=== PATIENT | female | born 1975 | race Caucasian/White ===

== ENCOUNTER 2017-05-23 16:57 | Inpatient (IN) | payer OTHER ==
--- NOTE | 2017-05-23 17:32 | Cat Scan Report ---
FINAL REPORT PROCEDURE: CT HEAD/BRAIN WO CON TECHNIQUE: Computerized tomography of the head was performed without contrast material. HISTORY: neuro deficits \T\lt; 6hrs or sx present upon awakening COMPARISON: No prior studies are available for comparison. FINDINGS: The visualized portions of the paranasal sinuses are clear. Mastoid air cells are clear. There is no calvarial fracture. There is no hydrocephalus. No acute intracranial hemorrhage or mass effect is seen. There are mild areas of hypodensity seen in the subcortical white matter in the frontal and parietal convexities. Appearance is nonspecific but could be from subacute to chronic small vessel ischemic changes or demyelinating process. Other causes of encephalopathy are not excluded. IMPRESSION: Nonspecific hypodensities are seen in the subcortical white matter in the frontal and parietal convexities. Findings could be due to small vessel ischemic changes but could be a demyelinating process. Other causes of encephalopathy are not excluded. Critical results were discussed with Dr Suarez at 5:26 p.m. Eastern time on May 23, 2017.
[2017-05-23 17:42] LABS: Basophils % (Auto) 0.6 % (0.0-1.8); Eosinophils % (Auto) 0.9 % (0.0-4.3); Hematocrit 44.7 % (30.3-42.9); Hemoglobin 14.1 gm/dl (10.1-14.3); Mean Corpuscular HGB Conc 32 % (30-34); Mean Corpuscular Volume 79 fl (79-97); Platelet Count 414 K/mm3 (140-440); Red Blood Count 5.64 M/mm3 (3.65-5.03); Red Cell Distribution Width 17.2 % (13.2-15.2)
[2017-05-23 17:43] LABS: Mean Corpuscular Hemoglobin 25 pg (28-32)
[2017-05-23 17:49] LABS: Urine Drugs of Abuse Note Disclamer
[2017-05-23 17:53] LABS: INR 1.09 (0.87-1.13)
[2017-05-23 17:54] LABS: Partial Thromboplastin Time 34.5 Sec. (24.2-36.6)
[2017-05-23 17:58] LABS: Anion Gap 22 mmol/L; Blood Urea Nitrogen 41 mg/dL (7-17); Calcium 9.9 mg/dL (8.4-10.2); Carbon Dioxide 24 mmol/L (22-30); Chloride 94.4 mmol/L (98-107); Glucose 94 mg/dL (65-100); Potassium 4.8 mmol/L (3.6-5.0); Sodium 136 mmol/L (137-145)
[2017-05-23 18:01] LABS: Bacteria,Urine 1+ /HPF (Negative); Bilirubin,Urine NEG (Negative); Blood,Urine NEG (Negative); Ketones,Urine NEG (Negative); Leukocyte Esterase,Urine NEG (Negative); Nitrite,Urine NEG (Negative); Urobilinogen,Urine < 2.0 mg/dL (<2.0)
--- NOTE | 2017-05-23 19:32 | Emergency Department Report ---
ED Neuro Deficit HPI - General Chief Complaint: Headache Stated Complaint: POSSIBLE CVA Time Seen by Provider: 05/23/17 17:16 Source: EMS Mode of arrival: Stretcher Limitations: No Limitations - History of Present Illness Initial Comments: Presented to this facility as a stroke protocol. I am told by paramedics that the patient laid down on the floor in bathroom at work. She works at [employer]. She told her coworkers he had a diffuse and somewhat frontal headache. Later she told medics that she was having weakness in her right hand. Medics thought that she might have upper extremity drift. Therefore she was transported as a code stroke. On arrival to this facility patient was not found to have drift. She appeared to have poor volition on right hand grasp but was able to do it with reasonable for us. She states that in January she was transferred from [facility] to [place] for evaluation of an intracranial hemorrhage. She states she had extensive testing and no source was found. She states that she was discharged with a "21 day supply of medicine for seizure". -: Gradual Location: other (right hand) History of same: Yes (see HPI) Place: work Severity: moderate Quality: weak Improves With: none Worsens With: none On Anticoagulants: No Context: gradual onset Associated Symptoms: denies other symptoms Treatments Prior to Arrival: none - Related Data Home Medications: Home Medications Medication Instructions Recorded Confirmed Last Taken Docusate Sodium [Colace] 100 mg PO BID 05/23/17 05/23/17 05/22/17 Lisinopril/Hydrochlorothiazide 1 tab PO QDAY 05/23/17 05/23/17 05/23/17 [Zestoretic 20-12.5 mg] Pravastatin Sodium [Pravastatin] 40 mg PO QHS 05/23/17 05/23/17 05/22/17 amLODIPine [Norvasc] 5 mg PO DAILY 05/23/17 05/23/17 05/23/17 Allergies/Adverse Reactions: Allergies Allergy/AdvReac Type Severity Reaction Status Date / Time No Known Allergies Allergy Unverified 05/23/17 17:01 ED Review of Systems ROS: Stated complaint: POSSIBLE CVA Other details as noted in HPI Constitutional: denies: chills, fever Eyes: denies: eye pain, eye discharge, vision change ENT: denies: ear pain, throat pain Respiratory: denies: cough, shortness of breath, wheezing Cardiovascular: denies: chest pain, palpitations Endocrine: no symptoms reported Gastrointestinal: denies: abdominal pain, nausea, diarrhea Genitourinary: denies: urgency, dysuria, discharge Musculoskeletal: denies: back pain, joint swelling, arthralgia Skin: denies: rash, lesions 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 denies: headache, paresthesias Psychiatric: denies: anxiety, depression Hematological/Lymphatic: denies: easy bleeding, easy bruising ED Past Medical Hx - Past Medical History Previous Medical History?: Yes Additional medical history: "brain bleed" april 2017 - Surgical History Past Surgical History?: Yes Hx Cholecystectomy: Yes Additional Surgical History: finger surgery - Social History Smoking Status: Never Smoker Substance Use Type: Prescribed - Medications Home Medications: Home Medications Medication Instructions Recorded Confirmed Last Taken Type Docusate Sodium [Colace] 100 mg PO BID 05/23/17 05/23/17 05/22/17 History Lisinopril/Hydrochlorothiazide 1 tab PO QDAY 05/23/17 05/23/17 05/23/17 History [Zestoretic 20-12.5 mg] Pravastatin Sodium [Pravastatin] 40 mg PO QHS 05/23/17 05/23/17 05/22/17 History amLODIPine [Norvasc] 5 mg PO DAILY 05/23/17 05/23/17 05/23/17 History ED Neuro Physical Exam - General Limitations: No Limitations General appearance: alert, in no apparent distress Suspected Stroke: No - Head Head exam: Present: atraumatic, normocephalic - Eye Eye exam: Present: normal appearance, PERRL, EOMI. Absent: scleral icterus - ENT ENT exam: Present: mucous membranes moist - Neck Neck exam: Present: normal inspection - Respiratory Respiratory exam: Present: normal lung sounds bilaterally. Absent: respiratory distress - Cardiovascular Cardiovascular Exam: Present: regular rate, normal rhythm. Absent: systolic murmur, diastolic murmur, rubs, gallop - GI/Abdominal GI/Abdominal exam: Present: soft, normal bowel sounds. Absent: distended, tenderness, guarding, rebound, rigid - Extremities Exam Extremities exam: Present: normal inspection - Back Exam Back exam: Present: normal inspection - Neurological Exam Neurological exam: Present: alert, oriented X3, CN II-XII intact. Absent: motor sensory deficit (the patient's NIH stroke score is 0. She seemed to have a stronger hand grasp on the left than on the right. However she had no drift. 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 Level of Consciousness: alert 1b. LOC Questions: answers correctly 1c. LOC Commands: performs tasks correctly 2. Best Gaze: normal 3. Visual: no visual loss 4. Facial Palsy: normal symmetrical movement 5b. Motor Arm Right: no drift 5a. Motor Arm Left: no drift 6a. Motor Leg Left: no drift 6b. Motor Leg Right: no drift 7. Limb Ataxia: absent 8. Sensory: normal 9. Best Language: no aphasia 10. Dysarthria: normal 11. Extinction/Inattention: no abnormality Total Score: 0 Stroke Severity: No Stroke Symptoms - Psychiatric Psychiatric exam: Present: normal affect, normal mood - Skin Skin exam: Present: warm, dry, intact, normal color. Absent: rash ED Course Vital Signs 05/23/17 05/23/17 17:51 17:56 Temperature 98 F Pulse Rate 91 H Respiratory 19 14 Rate Blood Pressure 143/82 O2 Sat by Pulse 100 Oximetry - Reevaluation(s) Reevaluation #1: The patient is not a candidate for TPA. She presented with a headache as her primary symptom. She has had a recent intracranial bleed by history. I NIH stroke score is 0. 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 Etiology of this is uncertain. She did appear to be quite anxious on preliminary neurological evaluation. I spoke with the radiologist concerning the patient's CT result. She has nonspecific hypodensities seen in the subcortical white matter of the frontal and parietal convexities. This could be due to a demyelinating disease. Multiple sclerosis is in the diagnosis. I asked the radiologist if he thought an MRI with contrast should be added to the usual stroke protocol. He stated that he thought that was a good idea. I have communicated this to who is admitted the patient further care and evaluation. 05/23/17 19:33 - Lab Data Result diagrams: 05/23/17 17:25 05/23/17 17:25 Lab Results 05/23/17 05/23/17 05/23/17 Range/Units 17:03 17:25 17:25 WBC 11.0 (4.5-11.0) K/mm3 RBC 5.64 H (3.65-5.03) M/mm3 Hgb 14.1 (10.1-14.3) gm/dl Hct 44.7 H (30.3-42.9) % MCV 79 (79-97) fl MCH 25 L (28-32) pg MCHC 32 (30-34) % RDW 17.2 H (13.2-15.2) % Plt Count 414 (140-440) K/mm3 Lymph % (Auto) 16.8 (13.4-35.0) % [place] % (Auto) 5.9 (0.0-7.3) % Eos % (Auto) 0.9 (0.0-4.3) % Baso % (Auto) 0.6 (0.0-1.8) % Lymph # 1.8 (1.2-5.4) K/mm3 [place] # 0.7 (0.0-0.8) K/mm3 Eos # 0.1 (0.0-0.4) K/mm3 Baso # 0.1 (0.0-0.1) K/mm3 Seg Neutrophils % 75.8 H (40.0-70.0) % Seg Neutrophils # 8.3 H (1.8-7.7) K/mm3 PT 14.0 (12.2-14.9) Sec. INR 1.09 (0.87-1.13) APTT 34.5 (24.2-36.6) Sec. Thrombin Time (15.1-19.6) Sec. Sodium (137-145) mmol/L Potassium (3.6-5.0) mmol/L Chloride (98-107) mmol/L Carbon Dioxide (22-30) mmol/L Anion Gap mmol/L BUN (7-17) mg/dL Creatinine (0.7-1.2) mg/dL Estimated GFR ml/min BUN/Creatinine Ratio % Glucose (65-100) mg/dL POC Glucose 113 H (70-105) Calcium (8.4-10.2) mg/dL Troponin T (0.00-0.029) ng/mL Urine Color (Yellow) Urine Turbidity (Clear) Urine pH (5.0-7.0) Ur Specific [place] (1.003-1.030) Urine Protein (Negative) mg/dL Urine Glucose (UA) (Negative) mg/dL Urine Ketones (Negative) mg/dL Urine Blood (Negative) Urine Nitrite (Negative) Urine Bilirubin (Negative) Urine Urobilinogen (<2.0) mg/dL Ur Leukocyte Esterase (Negative) Urine WBC (Auto) (0.0-6.0) /HPF Urine RBC (Auto) (0.0-6.0) /HPF U Epithel Cells (Auto) (0-13.0) /HPF Urine Bacteria (Auto) (Negative) /HPF Urine Opiates Screen Urine Methadone Screen Ur Barbiturates Screen Ur Phencyclidine Scrn Ur Amphetamines Screen U Benzodiazepines Scrn Urine Cocaine Screen U Marijuana (THC) Screen Drugs of Abuse Note 05/23/17 05/23/17 05/23/17 Range/Units 17:25 17:25 17:38 WBC (4.5-11.0) K/mm3 RBC (3.65-5.03) M/mm3 Hgb (10.1-14.3) gm/dl Hct (30.3-42.9) % MCV (79-97) fl MCH (28-32) pg MCHC (30-34) % RDW (13.2-15.2) % Plt Count (140-440) K/mm3 Lymph % (Auto) (13.4-35.0) % [place] % (Auto) (0.0-7.3) % Eos % (Auto) (0.0-4.3) % Baso % (Auto) (0.0-1.8) % Lymph # (1.2-5.4) K/mm3 [place] # (0.0-0.8) K/mm3 Eos # (0.0-0.4) K/mm3 Baso # (0.0-0.1) K/mm3 Seg Neutrophils % (40.0-70.0) % Seg Neutrophils # (1.8-7.7) K/mm3 PT (12.2-14.9) Sec. INR (0.87-1.13) APTT (24.2-36.6) Sec. Thrombin Time 14.8 L (15.1-19.6) Sec. Sodium 136 L (137-145) mmol/L Potassium 4.8 (3.6-5.0) mmol/L Chloride 94.4 L (98-107) mmol/L Carbon Dioxide 24 (22-30) mmol/L Anion Gap 22 mmol/L BUN 41 H (7-17) mg/dL Creatinine 2.0 H (0.7-1.2) mg/dL Estimated GFR 27 ml/min BUN/Creatinine Ratio 20.50 % Glucose 94 (65-100) mg/dL POC Glucose (70-105) Calcium 9.9 (8.4-10.2) mg/dL Troponin T < 0.010 (0.00-0.029) ng/mL Urine Color Yellow (Yellow) Urine Turbidity Clear (Clear) Urine pH 5.0 (5.0-7.0) Ur Specific [place] 1.016 (1.003-1.030) Urine Protein 30 mg/dl (Negative) mg/dL Urine Glucose (UA) Neg (Negative) mg/dL Urine Ketones Neg (Negative) mg/dL Urine Blood Neg (Negative) Urine Nitrite Neg (Negative) Urine Bilirubin Neg (Negative) Urine Urobilinogen < 2.0 (<2.0) mg/dL Ur Leukocyte Esterase Neg (Negative) Urine WBC (Auto) 1.0 (0.0-6.0) /HPF Urine RBC (Auto) 1.0 (0.0-6.0) /HPF U Epithel Cells (Auto) 1.0 (0-13.0) /HPF Urine Bacteria (Auto) 1+ (Negative) /HPF Urine Opiates Screen Urine Methadone Screen Ur Barbiturates Screen Ur Phencyclidine Scrn Ur Amphetamines Screen U Benzodiazepines Scrn Urine Cocaine Screen U Marijuana (THC) Screen Drugs of Abuse Note 05/23/17 Range/Units 17:38 WBC (4.5-11.0) K/mm3 RBC (3.65-5.03) M/mm3 Hgb (10.1-14.3) gm/dl Hct (30.3-42.9) % MCV (79-97) fl MCH (28-32) pg MCHC (30-34) % RDW (13.2-15.2) % Plt Count (140-440) K/mm3 Lymph % (Auto) (13.4-35.0) % [place] % (Auto) (0.0-7.3) % Eos % (Auto) (0.0-4.3) % Baso % (Auto) (0.0-1.8) % Lymph # (1.2-5.4) K/mm3 [place] # (0.0-0.8) K/mm3 Eos # (0.0-0.4) K/mm3 Baso # (0.0-0.1) K/mm3 Seg Neutrophils % (40.0-70.0) % Seg Neutrophils # (1.8-7.7) K/mm3 PT (12.2-14.9) Sec. INR (0.87-1.13) APTT (24.2-36.6) Sec. Thrombin Time (15.1-19.6) Sec. Sodium (137-145) mmol/L Potassium (3.6-5.0) mmol/L Chloride (98-107) mmol/L Carbon Dioxide (22-30) mmol/L Anion Gap mmol/L BUN (7-17) mg/dL Creatinine (0.7-1.2) mg/dL Estimated GFR ml/min BUN/Creatinine Ratio % Glucose (65-100) mg/dL POC Glucose (70-105) Calcium (8.4-10.2) mg/dL Troponin T (0.00-0.029) ng/mL Urine Color (Yellow) Urine Turbidity (Clear) Urine pH (5.0-7.0) Ur Specific [place] (1.003-1.030) Urine Protein (Negative) mg/dL Urine Glucose (UA) (Negative) mg/dL Urine Ketones (Negative) mg/dL Urine Blood (Negative) Urine Nitrite (Negative) Urine Bilirubin (Negative) Urine Urobilinogen (<2.0) mg/dL Ur Leukocyte Esterase (Negative) Urine WBC (Auto) (0.0-6.0) /HPF Urine RBC (Auto) (0.0-6.0) /HPF U Epithel Cells (Auto) (0-13.0) /HPF Urine Bacteria (Auto) (Negative) /HPF Urine Opiates Screen Presumptive negative Urine Methadone Screen Presumptive negative Ur Barbiturates Screen Presumptive negative Ur Phencyclidine Scrn Presumptive negative Ur Amphetamines Screen Presumptive negative U Benzodiazepines Scrn Presumptive negative Urine Cocaine Screen Presumptive negative U Marijuana (THC) Screen Presumptive negative Drugs of Abuse Note Disclamer - EKG Data -: EKG Interpreted by [place] EKG shows normal: sinus rhythm, axis, intervals, QRS complexes, ST-T waves Rate: normal Interpretation: no acute changes - Radiology Data Radiology results: report reviewed (see above report) Critical care attestation.: If time is entered above; I have spent that time in minutes in the direct care of this critically ill patient, excluding procedure time. ED Disposition Clinical Impression: Abnormal CT of brain Cephalalgia Qualifiers: Headache type: unspecified Headache chronicity pattern: acute headache Intractability: not intractable Qualified Code(s): R51 - Headache Disposition: DC-01 TO HOME OR SELFCARE Is pt being admited?: Yes Does the pt Need Aspirin: Yes Condition: Stable Time of Disposition: 19:36
[2017-05-23] MEDS ORDERED: BABY ASPIRIN PO ONE (19:36)
--- NOTE | 2017-05-23 20:10 | History and Physical Report ---
History of Present Illness Date of examination: 05/23/17 Date of admission: 05/23/17 Chief complaint: Rt side weakness History of present illness: History of Present Illness Very [poor historian Admits to passing out in [facility]. Presented to this facility as a stroke protocol. I am told by paramedics that the patient laid down on the floor in bathroom at work. She works at [employer]. She told her coworkers he had a diffuse and somewhat frontal headache. Later she told medics that she was having weakness in her right hand. Medics thought that she might have upper extremity drift. Therefore she was transported as a code stroke. On arrival to this facility patient was not found to have drift. She appeared to have poor volition on right hand grasp but was able to do it with reasonable for us. She states that in January she was transferred from [facility] to [place] for evaluation of an intracranial hemorrhage. She states she had extensive testing and no source was found. She states that she was discharged with a "21 day supply of medicine for seizure". - Related Data Home Medications: Home Medications Medication Instructions Recorded Confirmed Last Taken Docusate Sodium [Colace] 100 mg PO BID 05/23/17 05/23/17 05/22/17 Lisinopril/Hydrochlorothiazide 1 tab PO QDAY 05/23/17 05/23/17 05/23/17 [Zestoretic 20-12.5 mg] Pravastatin Sodium [Pravastatin] 40 mg PO QHS 05/23/17 05/23/17 05/22/17 amLODIPine [Norvasc] 5 mg PO DAILY 05/23/17 05/23/17 05/23/17 Allergies/Adverse Reactions: Allergies Allergy/AdvReac Type Severity Reaction Status Date / Time No Known Allergies Allergy Unverified 05/23/17 17:01 Past Medical Hx - Past Medical History Previous Medical History?: Yes Additional medical history: "brain bleed" april 2017 - Surgical History Past Surgical History?: Yes Hx Cholecystectomy: Yes Additional Surgical History: finger surgery - Social History Smoking Status: Never Smoker Substance Use Type: Prescribed - Medications Home Medications: Home Medications Medication Instructions Recorded Confirmed Last Taken Type Docusate Sodium [Colace] 100 mg PO BID 05/23/17 05/23/17 05/22/17 History Lisinopril/Hydrochlorothiazide 1 tab PO QDAY 05/23/17 05/23/17 05/23/17 History [Zestoretic 20-12.5 mg] Pravastatin Sodium [Pravastatin] 40 mg PO QHS 05/23/17 05/23/17 05/22/17 History amLODIPine [Norvasc] 5 mg PO DAILY 05/23/17 05/23/17 05/23/17 History Review of Systems ROS: Stated complaint: POSSIBLE CVA Other details as noted in HPI Constitutional: denies: chills, fever Eyes: denies: eye pain, eye discharge, vision change ENT: denies: ear pain, throat pain Respiratory: denies: cough, shortness of breath, wheezing Cardiovascular: denies: chest pain, palpitations Endocrine: no symptoms reported Gastrointestinal: denies: abdominal pain, nausea, diarrhea Genitourinary: denies: urgency, dysuria, discharge Musculoskeletal: denies: back pain, joint swelling, arthralgia Skin: denies: rash, lesions 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 denies: headache, paresthesias Psychiatric: denies: anxiety, depression Hematological/Lymphatic: denies: easy bleeding, easy bruising Medications and Allergies Allergies Allergy/AdvReac Type Severity Reaction Status Date / Time No Known Allergies Allergy Unverified 05/23/17 17:01 Home Medications Medication Instructions Recorded Confirmed Last Taken Type Docusate Sodium [Colace] 100 mg PO BID 05/23/17 05/23/17 05/22/17 History Lisinopril/Hydrochlorothiazide 1 tab PO QDAY 05/23/17 05/23/17 05/23/17 History [Zestoretic 20-12.5 mg] Pravastatin Sodium [Pravastatin] 40 mg PO QHS 05/23/17 05/23/17 05/22/17 History amLODIPine [Norvasc] 5 mg PO DAILY 05/23/17 05/23/17 05/23/17 History Exam - Constitutional Vitals: Temp Pulse Resp BP Pulse Ox 98 F 91 H 14 143/82 100 05/23/17 17:56 05/23/17 17:56 05/23/17 17:56 05/23/17 17:56 05/23/17 17:56 General appearance: Present: no acute distress, well-nourished - EENT Eyes: Present: PERRL ENT: hearing intact, clear oral mucosa - Neck Neck: Present: supple, normal ROM - Respiratory Respiratory effort: normal Respiratory: bilateral: CTA - Cardiovascular Heart rate: 78 Rhythm: regular Heart Sounds: Present: S1 & S2. Absent: rub, click - Extremities Extremities: no ischemia, pulses intact, pulses symmetrical, No edema Peripheral Pulses: within normal limits - Abdominal General gastrointestinal: Present: soft, non-tender, non-distended, normal bowel sounds Female genitourinary: Present: normal - Integumentary Integumentary: Present: clear, warm, dry - Musculoskeletal Musculoskeletal: right sided weakness (RUE weakness 4/5 power RLE 5/5) - Psychiatric Psychiatric: appropriate mood/affect, intact judgment & insight - Neurologic Neurologic: CNII-XII intact, moves all extremities Results - Labs CBC & Chem 7: 05/23/17 17:25 05/23/17 17:25 Labs: Laboratory Last Values WBC 11.0 K/mm3 (4.5-11.0) 05/23/17 17:25 RBC 5.64 M/mm3 (3.65-5.03) H 05/23/17 17:25 Hgb 14.1 gm/dl (10.1-14.3) 05/23/17 17:25 Hct 44.7 % (30.3-42.9) H 05/23/17 17:25 MCV 79 fl (79-97) 05/23/17 17:25 MCH 25 pg (28-32) L 05/23/17 17:25 MCHC 32 % (30-34) 05/23/17 17:25 RDW 17.2 % (13.2-15.2) H 05/23/17 17:25 Plt Count 414 K/mm3 (140-440) 05/23/17 17:25 Lymph % (Auto) 16.8 % (13.4-35.0) 05/23/17 17:25 [place] % (Auto) 5.9 % (0.0-7.3) 05/23/17 17:25 Eos % (Auto) 0.9 % (0.0-4.3) 05/23/17 17:25 Baso % (Auto) 0.6 % (0.0-1.8) 05/23/17 17:25 Lymph # 1.8 K/mm3 (1.2-5.4) 05/23/17 17:25 [place] # 0.7 K/mm3 (0.0-0.8) 05/23/17 17:25 Eos # 0.1 K/mm3 (0.0-0.4) 05/23/17 17:25 Baso # 0.1 K/mm3 (0.0-0.1) 05/23/17 17:25 Seg Neutrophils % 75.8 % (40.0-70.0) H 05/23/17 17:25 Seg Neutrophils # 8.3 K/mm3 (1.8-7.7) H 05/23/17 17:25 PT 14.0 Sec. (12.2-14.9) 05/23/17 17:25 INR 1.09 (0.87-1.13) 05/23/17 17:25 APTT 34.5 Sec. (24.2-36.6) 05/23/17 17:25 Thrombin Time 14.8 Sec. (15.1-19.6) L 05/23/17 17:25 Sodium 136 mmol/L (137-145) L 05/23/17 17:25 Potassium 4.8 mmol/L (3.6-5.0) 05/23/17 17:25 Chloride 94.4 mmol/L (98-107) L 05/23/17 17:25 Carbon Dioxide 24 mmol/L (22-30) 05/23/17 17:25 Anion Gap 22 mmol/L 05/23/17 17:25 BUN 41 mg/dL (7-17) H 05/23/17 17:25 Creatinine 2.0 mg/dL (0.7-1.2) H 05/23/17 17:25 Estimated GFR 27 ml/min 05/23/17 17:25 BUN/Creatinine Ratio 20.50 % 05/23/17 17:25 Glucose 94 mg/dL (65-100) 05/23/17 17:25 POC Glucose 113 (70-105) H 05/23/17 17:03 Calcium 9.9 mg/dL (8.4-10.2) 05/23/17 17:25 Troponin T < 0.010 ng/mL (0.00-0.029) 05/23/17 17:25 Urine Color Yellow (Yellow) 05/23/17 17:38 Urine Turbidity Clear (Clear) 05/23/17 17:38 Urine pH 5.0 (5.0-7.0) 05/23/17 17:38 Ur Specific [place] 1.016 (1.003-1.030) 05/23/17 17:38 Urine Protein 30 mg/dl mg/dL (Negative) 05/23/17 17:38 Urine Glucose (UA) Neg mg/dL (Negative) 05/23/17 17:38 Urine Ketones Neg mg/dL (Negative) 05/23/17 17:38 Urine Blood Neg (Negative) 05/23/17 17:38 Urine Nitrite Neg (Negative) 05/23/17 17:38 Urine Bilirubin Neg (Negative) 05/23/17 17:38 Urine Urobilinogen < 2.0 mg/dL (<2.0) 05/23/17 17:38 Ur Leukocyte Esterase Neg (Negative) 05/23/17 17:38 Urine WBC (Auto) 1.0 /HPF (0.0-6.0) 05/23/17 17:38 Urine RBC (Auto) 1.0 /HPF (0.0-6.0) 05/23/17 17:38 U Epithel Cells (Auto) 1.0 /HPF (0-13.0) 05/23/17 17:38 Urine Bacteria (Auto) 1+ /HPF (Negative) 05/23/17 17:38 Urine Opiates Screen Presumptive negative 05/23/17 17:38 Urine Methadone Screen Presumptive negative 05/23/17 17:38 Ur Barbiturates Screen Presumptive negative 05/23/17 17:38 Ur Phencyclidine Scrn Presumptive negative 05/23/17 17:38 Ur Amphetamines Screen Presumptive negative 05/23/17 17:38 U Benzodiazepines Scrn Presumptive negative 05/23/17 17:38 Urine Cocaine Screen Presumptive negative 05/23/17 17:38 U Marijuana (THC) Screen Presumptive negative 05/23/17 17:38 Drugs of Abuse Note Disclamer 05/23/17 17:38 Short CBC 05/23/17 Range/Units 17:25 WBC 11.0 (4.5-11.0) K/mm3 Hgb 14.1 (10.1-14.3) gm/dl Hct 44.7 H (30.3-42.9) % Plt Count 414 (140-440) K/mm3 BMP 05/23/17 17:25 Sodium 136 L Potassium 4.8 Chloride 94.4 L Carbon Dioxide 24 BUN 41 H Creatinine 2.0 H Glucose 94 Calcium 9.9 Cardiac Enzymes 05/23/17 05/23/17 05/24/17 Range/Units 17:25 21:30 02:19 Total Creatine Kinase 147 H 154 H (30-135) units/L CK-MB (CK-2) 2.0 2.1 (0.0-4.0) ng/mL Troponin T < 0.010 < 0.010 < 0.010 (0.00-0.029) ng/mL Urine 05/23/17 Range/Units 17:38 Urine Color Yellow (Yellow) Urine pH 5.0 (5.0-7.0) Ur Specific [place] 1.016 (1.003-1.030) Urine Protein 30 mg/dl (Negative) mg/dL Urine Glucose (UA) Neg (Negative) mg/dL - Imaging and Cardiology EKG: report reviewed CT Scan - head: report reviewed Imaging and Cardiology: Non specific Hypodensities Assessment and Plan Advance Directives: Yes (Fc) VTE prophylaxis?: Chemical Plan of care discussed with patient/family: Yes - Patient Problems (1) CVA (cerebral vascular accident) Current Visit: Yes Status: Acute Qualifiers: CVA mechanism: C Precerebral and cerebral artery: P Laterality of affected vessel: unspecified Plan to address problem: Very nlikely In favor of a conversion reaction will get mRI and MRA (2) Syncope and collapse Current Visit: Yes Status: Acute Plan to address problem: Syncope w/u (3) HTN (hypertension) Current Visit: Yes Status: Chronic Qualifiers: Hypertension type: essential hypertension Qualified Code(s): I10 - Essential (primary) hypertension Plan to address problem: Cont Lisinopril (4) HLD (hyperlipidemia) Current Visit: Yes Status: Chronic Qualifiers: Hyperlipidemia type: mixed hyperlipidemia Qualified Code(s): E78.2 - Mixed hyperlipidemia Plan to address problem: Cont statins (5) DVT prophylaxis Current Visit: Yes Status: Acute Plan to address problem: on lovenox
[2017-05-23] MEDS ORDERED: NON-FORMULARY (Lisinopril/Hydrochlorothiazide [Zestoretic 20-12.5 Mg] 1 TAB) PO SCH (20:15)
[2017-05-23] MEDS ORDERED: SODIUM CHLORIDE FLUSH SYRINGE 10 ML IV PRN (20:16)
[2017-05-23] MEDS ORDERED: HCTZ PO SCH (21:00)
[2017-05-23] MEDS ORDERED: ZESTRIL PO SCH (21:00)
[2017-05-23] MEDS: COLACE PO SCH (21:36)
[2017-05-23] MEDS: ZOCOR PO SCH (21:36)
[2017-05-23] MEDS: NORVASC PO SCH (21:40)
[2017-05-23] MEDS ORDERED: NON-FORMULARY (Pravastatin Sodium [Pravastatin] 40 MG) PO SCH (22:00)
[2017-05-23] MEDS ORDERED: ZOCOR PO SCH (22:00)
[2017-05-23 22:27] LABS: Creatine Kinase 147 units/L (30-135)
[2017-05-24 03:11] LABS: Creatine Kinase MB 2.1 ng/mL (0.0-4.0)
[2017-05-24 03:13] LABS: Creatine Kinase 154 units/L (30-135)
--- NOTE | 2017-05-24 07:46 | Admit Criteria Form ---
Admission Criteria Documentation: NEUROLOGY GRG Clinical Indications for Admission to Inpatient Care (Place ' X' for any and all applicable criteria): Hospital admission is needed for appropriate care of the patient because of 1 or more of the following: [ ]I. Encephalitis [ ]II. Severe VISUAL EDUCATOR infections indicated by 1 or more of the following(1)(2)(3) : [ ]a) Intracranial abscess [ ]b) Spinal abscess or myelitis [ ]c) Tuberculous or other nonbacterial, nonviral VISUAL EDUCATOR infection(8) [ ]III. Vasculitis and 1 or more of the following(14)(15): []a) Altered mental status that is severe or persistent or other acute neurologic change []b) Psychosis []c) Seizure [ ]IV. Status epilepticus or repetitive seizures not controlled with emergent treatment [A] (7)(8) [ ]V. Altered mental status that is severe or persistent [ ]. Transient alteration in consciousness with high-risk etiology; examples include (12)(13): [ ]a) Cardiovascular source [ ]b) Cataplexy [ ]VII. Cerebral aneurysm requiring ANY ONE of the following(14): [ ]a) IV antihypertensives or vasoactive agents [ ]b) Sedation and analgesia for suspected leak [ ]c) Need for external ventricular drainage and cerebral perfusion pressure monitoring [ ]d) Emergent evaluation to determine need for surgical clipping or endovascular coiling by interventional radiology. If surgery is required ( Also use Craniotomy, Supratentorial, for Surgery of Bleeding Intracranial Aneurysm (for bleeding aneurysm) or Craniotomy, Supratentorial (for nonbleeding aneurysm) as appropriate. [ ]VIII. New-onset severe neurologic symptom requiring inpatient care indicated by ANY ONE of the following: [ ]a) Aphasia(15) [ ]b) Weakness (grade 3 or less) [ ]c) Paralysis (eg, hemiplegia) [ ]d) Spasticity(16) [ ]e) Dystonia [ ]e) Ataxia(17) [ ]f) Amnesia(18) [ ]g) Involuntary movements(19) [ ]h) Vertigo [ ] Visual loss [ ]i) Other severe neurologic finding (eg, papilledema, mass effect on imaging, myoclonus not treatable at alternative level of care (eg, observation care) [ ]IX. Guillain-Stacy syndrome(20) [ ]X. Myasthenia gravis crisis or inpatient monitoring need as indicated by 1 or more of the following(21): [ ]a) Intensive treatment (eg, course of plasmapheresis) with inadequate outpatient situation to monitor patients status [ ]b) Inadequate airway protection [ ]c) Respiratory insufficiency requiring intubation or inpatient. monitoring [ ]d) Progressive dysphagia with failure to thrive [ ]XI. Multiple sclerosis or other acute demyelinating disease requiring inpatient care as indicated by 1 or more of the following (22)(23): [ ]a) Acute severe deterioration requiring inpatient treatment (eg, IV steroids, plasmapheresis, close observation) [ ]b) Acute complication requiring inpatient care (eg, sepsis, severe decubitus, aspiration) [ ]XII.Parkinson disease requiring inpatient care (Also use Optimal Recovery Care Criteria or General Recovery Criteria as appropriate) indicated by 1 or more of the following(25): [ ]a) Infection (eg, aspiration pneumonia) not treatable at alternative level of care [ ]b Dehydration that is severe or persistent [ ]c) Life-threatening agitation or psychotic behavior not treatable on emergency, observation care, or alternative level (eg, residential) basis [ ]d) Severe medication withdrawal effects (eg, freezing, neuroleptic malignant syndrome) not responsive to emergency and observation care treatment ( as appropriate) [ ]e) Other severe manifestation not treatable at alternative level of care [ ]XII. Amyotrophic lateral sclerosis with inpatient care needs as indicated by ANY ONE of the following(26): [ ]a) Acute complications (eg, aspiration pneumonia, sepsis ) requiring inpatient care ( see other optimal Recovery Guideline as appropriate) [ ]b) Dehydration that is severe persistent AND artificial support desired [ ]c) Inadequate airway protection AND artificial support desired [ ]d) Severe ventilatory insufficiency AND artificial support desired [ ]XIII. Myasthenia gravis crisis or inpatient monitoring need as indicated by 1 or more of the following(21): [] a) Inadequate airway protection []b) Respiratory insufficiency requiring intubation or inpatient monitoring []c) Progressive dysphagia with failure to thrive []d) Intensive treatment (e.g., course of plasmapheresis) with inadequate outpatient situation to monitor patients status [ ]XIV. Multiple sclerosis or other acute demyelinating disease requiring inpatient care indicated by 1 or more of the following[C](36)(43)(44)(45)(46): []a) Acute severe deterioration requiring inpatient treatment (eg, IV steroids, plasmapheresis, close observation) []b) Acute complication requiring inpatient care (eg, sepsis, severe decubitus, aspiration) [ ]XV. Intracranial hypertension (e.g., pseudotumor cerebri) requiring inpatient care (e.g., acute visual loss, inadequate oral intake) (47)(48)(49) [ ]XVI. Parkinson disease requiring inpatient care (Also use Optimal Recovery Care Criteria or General Recovery Criteria as appropriate) indicated by 1 or more of the following(25): [] a) Infection (e.g., aspiration pneumonia) not treatable at alternative level of care []b) Volume depletion not responsive to emergency and observation care treatment (as appropriate) []c) Life-threatening agitation or psychotic behavior not treatable on emergency, observation care, or alternative level (e.g., residential) basis []d) Severe medication withdrawal effects (e.g., freezing, neuroleptic malignant syndrome) not responsive to emergency and observation care treatment (as appropriate) []e) Other severe manifestation not treatable at alternative level of care [ ]XVII. Amyotrophic lateral sclerosis with inpatient care needs as indicated by1 or more of the following(42): []a) Acute complications (eg, aspiration pneumonia, sepsis) requiring inpatient care (see other Optimal Recovery Guideline or General Recovery Guideline as appropriate) []b) Dehydration that is severe or persistent AND artificial support desired []c) Inadequate airway protection AND artificial support desired []d) Severe ventilatory insufficiency AND artificial support desired [ ]XVIII. Severe myopathy, neuropathy, or other neuromuscular disease indicated by 1 or more of the following(42)(52)(53)(54): []a ) New-onset severe diffuse weakness (eg, strength 3/5 or less) []b) Severe dysphagia []c) Dyspnea at rest or with minimal exertion (new) []d) Inadequate airway protection []e) Inadequate ventilation indicated by 1 or more of the following : i) Partial pressure of carbon dioxide greater than 44 mm Hg ( 5.9 kPa) (new) ii) Reduced peak expiratory flow rate (new) iii) Vital capacity less than 50% of predicted (less than 15 mL/kg) iv) Peak inspiratory force less negative than -30 cm H2O (- 2942 Pa) [ ]XVII.Complications of congenital or degenerative disease (eg, infection, seizures, dehydration, injury) not responsive to emergency and observation care treatment (as appropriate ) [C](16)(29)(30) [ ]XVIII.Suspected or confirmed nerve or muscle toxic injury, including ANY ONE of the following: [ ]a) Rhabdomyolysis(31) i) Acute renal failure ii) Dehydration that is severe or persistent iii) Altered mental status that is severe or persistent iv) Electrolyte abnormality that remains after emergency or observation level care ( as appropriate) [ ]b) Botulism(32) [ ]c) Other severe toxin-induced sign or symptom [ ]XIX. Neurologic trauma requiring inpatient treatment (medical) indicated by ANY ONE of the following(33)(34): [ ]a) Vital signs or neurologic signs more frequently than every 4 hours [ ]b) Hyperosmolar therapy [ ]c) Respiratory monitoring [ ]d) Intracranial pressure monitoring and treatment [ ]e) Stabilization and immobilization device placement (eg, braces, body jacket) [ ]f) Intubation & mechanical ventilation for airway protection or therapeutic hyperventilation [ ]g) Other treatment or monitoring needed that requires inpatient level of care [ ]XX.Complications of neurologic devices (eg, ventricular shunt, neurostimulator) requiring 1 or more of the following(35)(36): [ ]a) IV antibiotics with monitoring while awaiting culture results [ ]b) Monitoring for hydrocephalus [X ]XXI. Neurology condition symptom, or finding for which emergency and observation care have failed or are not considered appropriate. See General Criteria: Observation Care ISC, General Admission Criteria GRG, or Pediatric General Admission Criteria GRG guideline as appropriate. The original [facility] content created by [facility] has been revised. The portions of the content which have been revised are identified through the use of italic text or in bold, and [facility] has neither reviewed nor approved the modified material. All other unmodified content is copyright [facility] Please see references footnoted in the original [facility] edition 2016 Admission Criteria Met: Yes
--- NOTE | 2017-05-24 10:40 | Magnetic Resonance Report ---
MRI of the brain without contrast. History: Stroke. Procedure: Routine brain protocol without contrast. Findings: The posterior fossa is normal. The ventricles are normal in size and contour. There are no masses or extra axial collections. There is no restricted diffusion. There are extensive abnormal areas of hyperintense T2 and flair signal in the white matter including the bustos radiata and centrum semi-ovale. These are relatively symmetrical. The pituitary gland is normal. The visualized extracranial structures are unremarkable. Impression: Bilateral extensive white matter signal abnormalities most likely due to a demyelinating process given the patient's age. White matter microangiopathy is considered less likely.
--- NOTE | 2017-05-24 10:43 | Magnetic Resonance Report ---
MRA of the [place]. History: Stroke. Procedure: 3-D [id number] technique. Findings: The visualized internal carotid arteries are normal. The anterior and middle cerebral arteries and their branches are normal. The posterior cerebral arteries are normal. The left vertebral artery is dominant. The basilar artery is patent and normal. Impression: No significant abnormalities.
[2017-05-24] MEDS: COLACE PO SCH ×2 (11:06→21:10)
[2017-05-24] MEDS: NACL 0.9% 1000 ML 1,000 ML IV SCH ×2 (11:06→18:25)
[2017-05-24] MEDS: LOVENOX SUB-Q SCH (11:06)
[2017-05-24] MEDS: NORVASC PO SCH (11:07)
--- NOTE | 2017-05-24 12:42 | Consultation ---
History of Present Illness - Reason for Consult Consult date: 05/24/17 syncope - History of Present Illness patient seen and assessed full w/u ordered EEG/MRI examined patient at present she is alert and ghas no deficites... suspevct based on the direct hx from patient she was exposure to toxic fumes likely syncope but need to r/o seizure exam stable for now Thanks Medications and Allergies Allergies Allergy/AdvReac Type Severity Reaction Status Date / Time No Known Allergies Allergy Unverified 05/23/17 17:01 Home Medications Medication Instructions Recorded Confirmed Last Taken Type Docusate Sodium [Colace] 100 mg PO BID 05/23/17 05/23/17 05/22/17 History Lisinopril/Hydrochlorothiazide 1 tab PO QDAY 05/23/17 05/23/17 05/23/17 History [Zestoretic 20-12.5 mg] Pravastatin Sodium [Pravastatin] 40 mg PO QHS 05/23/17 05/23/17 05/22/17 History amLODIPine [Norvasc] 5 mg PO DAILY 05/23/17 05/23/17 05/23/17 History Active Meds: Active Medications Amlodipine Besylate (Norvasc) 10 mg PO DAILY [facility] Last Admin: 05/24/17 11:07 Dose: 10 mg Docusate Sodium (Colace) 100 mg PO BID [facility] Last Admin: 05/24/17 11:06 Dose: 100 mg Enoxaparin Sodium (Lovenox) 40 mg SUB-Q QDAY [facility] Last Admin: 05/24/17 11:06 Dose: 40 mg Sodium Chloride (Nacl 0.9% 1000 Ml) 1,000 mls @ 100 mls/hr IV DIRECT [facility] Last Admin: 05/24/17 11:06 Dose: 100 mls/hr Simvastatin (Zocor) 20 mg PO QHS [facility] Last Admin: 05/23/17 21:36 Dose: 20 mg Sodium Chloride (Sodium Chloride Flush Syringe 10 Ml) 10 ml IV PRN PRN PRN Reason: LINE FLUSH Exam - Constitutional Vitals: Temp Pulse Resp BP Pulse Ox 97.4 F L 65 20 107/65 100 05/24/17 11:00 05/24/17 11:07 05/24/17 11:00 05/24/17 11:07 05/24/17 11:00 Results - Labs CBC & Chem 7: 05/23/17 17:25 05/23/17 17:25 Labs: Abnormal lab results 05/23/17 05/24/17 05/24/17 Range/Units 21:30 02:19 02:19 Total Creatine Kinase 147 H 154 H (30-135) units/L Triglycerides 174 H (2-149) mg/dL
--- NOTE | 2017-05-24 12:47 | Consultation ---
History of Present Illness Consult date: 05/24/17 Requesting physician: NEENA TILLMAN Reason for Consult: Headache and abnormal MRI Chief complaint: NEUROLOGY CONSULT BRIEF NOTE (SEE FULL DICTATED WORK UP) Hx reviewed with patient in great detail. See diagnoses below. MRI reviewed with radioliogy. White matter lesions are those of small vessel ischemic disease c/w her hx of HTN. There are not in the periventricular region nor do they involve the corpus callosum. Not MS .. MRA head and neck: normal3. LETICIA: normal, EF 55% Neuro exam is normal save for sensory deficit Right arm (not R face or leg) to touch, and sl slower on T in FNF testing. IMP: 1. Episode of light headedness and malaise and feeling faint WHILE cleaning a bathroom at [facility] and after wiping down two stalls with bleach + a stainless steel hand glove cleaner (a large surface at close range near her face), secondary to the toxic effect of these fumes. Her BP may have been low at that time as well (see below). 2. Hypertension dx'd two weeks ago, and started on meds then, initially just a diuretic, then Linsinopril was added one week ago. The [facility] clinic said her BP was low at 90/70, patient called her MD but did not receive a call back. 3. Episode of syncope three days ago at 3:00 am when she got up to go to the bathroom, where she passed out and awoke on the floor one hour later having hit her head with a subsequent headache having struck her forehead. No antecedent hx of syncope. 4. Episode in January 2017 of difficulty with speech and right facial droop noted one morning by a Sayda jasmine, taken to [facility] where a ?small subdural hemorrhage was seen on CT at which point she was life-flighted to [place] where she stayed for 17 days with multiday EEG monitoring. They apparently could find no evidence of bleeding.She is not clear what her final dx was, and has a follow up appt at [place] on Jun 13, 2017. 5. Hx recent blunt head trauma, with mild post-concussive syndrome. RECC: 1. Get EEG 2. Get postural signs and back off her HTN regimen somewhat. 3. Go from there. Please order these if you agree. Liliana Hurst MD Medications and Allergies Allergies Allergy/AdvReac Type Severity Reaction Status Date / Time No Known Allergies Allergy Unverified 05/23/17 17:01 Home Medications Medication Instructions Recorded Confirmed Last Taken Type Docusate Sodium [Colace] 100 mg PO BID 05/23/17 05/23/17 05/22/17 History Lisinopril/Hydrochlorothiazide 1 tab PO QDAY 05/23/17 05/23/17 05/23/17 History [Zestoretic 20-12.5 mg] Pravastatin Sodium [Pravastatin] 40 mg PO QHS 05/23/17 05/23/17 05/22/17 History amLODIPine [Norvasc] 5 mg PO DAILY 05/23/17 05/23/17 05/23/17 History Active Meds: Active Medications Amlodipine Besylate (Norvasc) 10 mg PO DAILY [facility] 234 BEDS AT [facility] Last Admin: 05/24/17 11:07 Dose: 10 mg Docusate Sodium (Colace) 100 mg PO BID COUNTS INCLUDE 234 BEDS AT THE [facility] Last Admin: 05/24/17 11:06 Dose: 100 mg Enoxaparin Sodium (Lovenox) 40 mg SUB-Q QDAY COUNTS INCLUDE 234 BEDS AT THE [facility] Last Admin: 05/24/17 11:06 Dose: 40 mg Sodium Chloride (Nacl 0.9% 1000 Ml) 1,000 mls @ 100 mls/hr IV DIRECT COUNTS INCLUDE 234 BEDS AT THE [facility] Last Admin: 05/24/17 11:06 Dose: 100 mls/hr Simvastatin (Zocor) 20 mg PO QHS COUNTS INCLUDE 234 BEDS AT THE [facility] Last Admin: 05/23/17 21:36 Dose: 20 mg Sodium Chloride (Sodium Chloride Flush Syringe 10 Ml) 10 ml IV PRN PRN PRN Reason: LINE FLUSH Physical Examination - Vital Signs Vital Signs: Vital Signs Pulse Ox 98 05/23/17 17:17 Results - Laboratory Findings CBC and BMP: 05/23/17 17:25 05/23/17 17:25 Abnormal Lab Findings: Abnormal Labs 05/23/17 05/24/17 05/24/17 21:30 02:19 02:19 Total Creatine Kinase 147 H 154 H Triglycerides 174 H
[2017-05-24 15:29] LABS: Creatine Kinase 136 units/L (30-135); Creatine Kinase MB 1.6 ng/mL (0.0-4.0)
--- NOTE | 2017-05-24 16:23 | Progress Note ---
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 She works at [employer]. She told her coworkers he had a diffuse and somewhat frontal headache. Later she told medics that she was having numbness in RUE. She has a previous hx of hemorrhagic stroke at [facility] earlier this year, and now has permanently slurred speech and mild expressive aphasia. States that she was started on lisinopril/ hct combination pill a week prior and it was causing her polyuria SHARON likely vasomotor nephropathy continue IVF, improving Discontinue the NADIYA inhibitor and diuretic Dehydration Due to diuretic use, it has been discontinued, continue IV fluids Suspected CVA CT does not show any acute stroke, continue stroke protocol, follow up MR brain Syncope and collapse Most likely due to dehydration, dizziness has now resolved HTN (hypertension) Discontinue NADIYA inhibitor and diuretic, medication since her [facility] HLD (hyperlipidemia) Cont statins DVT prophylaxis on lovenox History Interval history: Denies any focal weakness, continues to have some right-sided upper extremity numbness from time to time. She denies any dizziness, denies any shortness of breath or chest pain. Hospitalist Physical - Physical exam Narrative exam: General.: Appears well, no distress, nontoxic HEENT: Moist mucous membranes, extraocular muscles intact, no lymphadenopathy Neck: supple Cardiac: S1-S2 heard Lungs: clear to auscultation bilaterally Abdomen: soft , nontender, nondistended, bowel sounds positive Extremities: no edema clubbing or cyanosis Skin: no rash or lesions Neurologic: no gross focal deficits, slightly slurred speech Psych: appropriate behavior, appropriate mood, corporative, judgment intact - Constitutional Vitals: Temp Pulse Resp BP Pulse Ox 97.4 F L 65 20 107/65 100 05/24/17 11:00 05/24/17 11:07 05/24/17 11:00 05/24/17 11:05/24/17 11:00 General appearance: Present: no acute distress, well-nourished Results - Labs CBC & Chem 7: 05/23/17 17:25 05/25/17 04:41 Labs: Laboratory Last Values WBC 11.0 K/mm3 (4.5-11.0) 05/23/17 17:25 RBC 5.64 M/mm3 (3.65-5.03) H 05/23/17 17:25 Hgb 14.1 gm/dl (10.1-14.3) 05/23/17 17:25 Hct 44.7 % (30.3-42.9) H 05/23/17 17:25 MCV 79 fl (79-97) 05/23/17 17:25 MCH 25 pg (28-32) L 05/23/17 17:25 MCHC 32 % (30-34) 05/23/17 17:25 RDW 17.2 % (13.2-15.2) H 05/23/17 17:25 Plt Count 414 K/mm3 (140-440) 05/23/17 17:25 Lymph % (Auto) 16.8 % (13.4-35.0) 05/23/17 17:25 [place] % (Auto) 5.9 % (0.0-7.3) 05/23/17 17:25 Eos % (Auto) 0.9 % (0.0-4.3) 05/23/17 17:25 Baso % (Auto) 0.6 % (0.0-1.8) 05/23/17 17:25 Lymph # 1.8 K/mm3 (1.2-5.4) 05/23/17 17:25 [place] # 0.7 K/mm3 (0.0-0.8) 05/23/17 17:25 Eos # 0.1 K/mm3 (0.0-0.4) 05/23/17 17:25 Baso # 0.1 K/mm3 (0.0-0.1) 05/23/17 17:25 Seg Neutrophils % 75.8 % (40.0-70.0) H 05/23/17 17:25 Seg Neutrophils # 8.3 K/mm3 (1.8-7.7) H 05/23/17 17:25 PT 14.0 Sec. (12.2-14.9) 05/23/17 17:25 INR 1.09 (0.87-1.13) 05/23/17 17:25 APTT 34.5 Sec. (24.2-36.6) 05/23/17 17:25 Thrombin Time 14.8 Sec. (15.1-19.6) L 05/23/17 17:25 Sodium 136 mmol/L (137-145) L 05/23/17 17:25 Potassium 4.8 mmol/L (3.6-5.0) 05/23/17 17:25 Chloride 94.4 mmol/L (98-107) L 05/23/17 17:25 Carbon Dioxide 24 mmol/L (22-30) 05/23/17 17:25 Anion Gap 22 mmol/L 05/23/17 17:25 BUN 41 mg/dL (7-17) H 05/23/17 17:25 Creatinine 2.0 mg/dL (0.7-1.2) H 05/23/17 17:25 Estimated GFR 27 ml/min 05/23/17 17:25 BUN/Creatinine Ratio 20.50 % 05/23/17 17:25 Glucose 94 mg/dL (65-100) 05/23/17 17:25 POC Glucose 113 (70-105) H 05/23/17 17:03 Calcium 9.9 mg/dL (8.4-10.2) 05/23/17 17:25 Total Creatine Kinase 136 units/L (30-135) H 05/24/17 14:40 CK-MB (CK-2) 1.6 ng/mL (0.0-4.0) 05/24/17 14:40 CK-MB (CK-2) Rel Index 1.1 (0-4) 05/24/17 14:40 Troponin T < 0.010 ng/mL (0.00-0.029) 05/24/17 14:40 Triglycerides 174 mg/dL (2-149) H 05/24/17 02:19 Cholesterol 196 mg/dL (50-199) 05/24/17 02:19 LDL Cholesterol Direct 118 mg/dL (50-130) 05/24/17 02:19 HDL Cholesterol 44 mg/dL (40-59) 05/24/17 02:19 Cholesterol/HDL Ratio 4.45 % 05/24/17 02:19 Urine Color Yellow (Yellow) 05/23/17 17:38 Urine Turbidity Clear (Clear) 05/23/17 17:38 Urine pH 5.0 (5.0-7.0) 05/23/17 17:38 Ur Specific Felt 1.016 (1.003-1.030) 05/23/17 17:38 Urine Protein 30 mg/dl mg/dL (Negative) 05/23/17 17:38 Urine Glucose (UA) Neg mg/dL (Negative) 05/23/17 17:38 Urine Ketones Neg mg/dL (Negative) 05/23/17 17:38 Urine Blood Neg (Negative) 05/23/17 17:38 Urine Nitrite Neg (Negative) 05/23/17 17:38 Urine Bilirubin Neg (Negative) 05/23/17 17:38 Urine Urobilinogen < 2.0 mg/dL (<2.0) 05/23/17 17:38 Ur Leukocyte Esterase Neg (Negative) 05/23/17 17:38 Urine WBC (Auto) 1.0 /HPF (0.0-6.0) 05/23/17 17:38 Urine RBC (Auto) 1.0 /HPF (0.0-6.0) 05/23/17 17:38 U Epithel Cells (Auto) 1.0 /HPF (0-13.0) 05/23/17 17:38 Urine Bacteria (Auto) 1+ /HPF (Negative) 05/23/17 17:38 Urine Opiates Screen Presumptive negative 05/23/17 17:38 Urine Methadone Screen Presumptive negative 05/23/17 17:38 Ur Barbiturates Screen Presumptive negative 05/23/17 17:38 Ur Phencyclidine Scrn Presumptive negative 05/23/17 17:38 Ur Amphetamines Screen Presumptive negative 05/23/17 17:38 U Benzodiazepines Scrn Presumptive negative 05/23/17 17:38 Urine Cocaine Screen Presumptive negative 05/23/17 17:38 U Marijuana (THC) Screen Presumptive negative 05/23/17 17:38 Drugs of Abuse Note Disclamer 05/23/17 17:38
--- NOTE | 2017-05-24 16:38 | Consultation ---
History of Present Illness - Reason for Consult Consult date: 05/24/17 acute renal failure - History of Present Illness Mrs. Ayala is a 41yo female with hypertension who presented to the ED with history of headaches and right hand weakness concerning for stroke. Patient reports that she was in usual state of health until morning of admission, when she began feeling dizzy while cleaning bathroom at [facility]. Labs at admission were notable for SCr 2.0mg/dL. Patient denies a prior history of kidney disease. She denies epistaxis, hemoptysis, hematuria, nephrolithiasis and recurrent UTI. She reports seldom use of NSAIDs. She denies a family history of kidney disease. Past History Past Medical History: hypertension, hyperlipidemia Social history: no significant social history Family history: no significant family history (of kidney disease) Medications and Allergies Allergies Allergy/AdvReac Type Severity Reaction Status Date / Time No Known Allergies Allergy Unverified 05/23/17 17:01 Home Medications Medication Instructions Recorded Confirmed Last Taken Type Docusate Sodium [Colace] 100 mg PO BID 05/23/17 05/23/17 05/22/17 History Lisinopril/Hydrochlorothiazide 1 tab PO QDAY 05/23/17 05/23/17 05/23/17 History [Zestoretic 20-12.5 mg] Pravastatin Sodium [Pravastatin] 40 mg PO QHS 05/23/17 05/23/17 05/22/17 History amLODIPine [Norvasc] 5 mg PO DAILY 05/23/17 05/23/17 05/23/17 History Active Meds: Active Medications Amlodipine Besylate (Norvasc) 10 mg PO DAILY [facility] Last Admin: 05/24/17 11:07 Dose: 10 mg Docusate Sodium (Colace) 100 mg PO BID [facility] Last Admin: 05/24/17 11:06 Dose: 100 mg Enoxaparin Sodium (Lovenox) 40 mg SUB-Q QDAY [facility] Last Admin: 05/24/17 11:06 Dose: 40 mg Sodium Chloride (Nacl 0.9% 1000 Ml) 1,000 mls @ 100 mls/hr IV DIRECT [facility] Last Admin: 05/24/17 11:06 Dose: 100 mls/hr Simvastatin (Zocor) 20 mg PO QHS [facility] Last Admin: 05/23/17 21:36 Dose: 20 mg Sodium Chloride (Sodium Chloride Flush Syringe 10 Ml) 10 ml IV PRN PRN PRN Reason: LINE FLUSH Review of Systems Constitutional: no fever, no chills, no sweats Ears, nose, mouth and throat: headache Cardiovascular: palpitations, no chest pain, no shortness of breath, no leg edema Respiratory: no cough, no shortness of breath, no dyspnea on exertion Gastrointestinal: no abdominal pain, no nausea, no vomiting, no diarrhea, no constipation Genitourinary Female: no dysuria, no hematuria, no nocturia Musculoskeletal: other (joint pain) Integumentary: no rash, no pruritis Exam - Vital Signs Vital signs: Vital Signs Pulse Ox 98 05/23/17 17:17 - General Appearance General appearance: well-developed, well-nourished EENT: ATNC Neck: Present: neck supple Respiratory: Clear to Ascultation Heart: regular, S1S2 Gastrointestinal: Present: normal. Absent: tenderness, distended Integumentary: no rash Musculoskeletal: Present: other (no edema) Psychiatric: mood/affect appropriate, cooperative Results - Lab Results 05/23/17 17:25 05/23/17 17:25 Most recent lab results Calcium 9.9 mg/dL (8.4-10.2) 05/23/17 17:25 Assessment and Plan Impression * Acute kidney injury - ?secondary to prerenal azotemia --SCr 1.1mg/dL - May 08 * Hypertension - recent dx * Hx of syncopal episode Plan: * Continue IVF for hydration * Continue to hold diuretic and ACEi * Obtain serologic work up and urine studies * Obtain renal ultrasound * Neuro work up in progress * Dose medications for renal function * Avoid nephrotoxins
[2017-05-24] MEDS: ZOCOR PO SCH (21:10)
[2017-05-24 21:54] LABS: Calcium 8.6 mg/dL (8.4-10.2); Chloride 99.5 mmol/L (98-107); Potassium 4.2 mmol/L (3.6-5.0)
--- NOTE | 2017-05-25 02:26 | Consultation ---
NEUROLOGIC CONSULTATION CHIEF COMPLAINT: I am asked to see this 41-year-old woman for evaluation of headache and an abnormal MRI scan of the brain. HISTORY OF PRESENT ILLNESS: The patient indicates that she has enjoyed reasonable health over the years, although she is noted to have a creatinine of 2.0 and BUN of 41 at this time. In this setting in 01/2017, she was noted to have a right facial droop and difficulty with speaking at [facility]. The [facility] physicist nuclear pointed out this to her and she was taken to the [facility], where a CT scan apparently showed some evidence of "hemorrhage on the left side of her brain." She was life-flighted to [place] and stayed there for some 17 days, undergoing extensive multi-day EEG monitoring from her description. She was unclear as to her diagnosis at that time and was sent home on a tapering dose of an anticonvulsant and then instructed to discontinue this. She had been on the anticonvulsant at [place]. She has a followup with her [place] neurologist on 06/13/2017 and was told by him apparently "I have never seen a stroke like this in my entire career." Two weeks ago, she was found to be hypertensive and was begun on her regimen initially of just a diuretic and then lisinopril was added. At the [facility], she was observed to have low systolic blood pressures in the 90s and advised to call her physician, which she did but received no call back. She continued her medical regimen. Then, 3 days ago Monday of this week at 3:00 in the morning, she got up to go to the bathroom, where she passed out awakening an hour later having banged her forehead. She awoke lying on her stomach. There was no bleeding. She also injured her nose. She had a mild headache after that and has had it since that time. Most recently on the day of admission, she was cleaning a bathroom at [facility] using bleach and a stainless steel casting cleaner to clean 2 stalls. She had just completed the 2 stalls, breathing the toxic fumes of the bleach and the stainless steel casting cleaner when she felt poorly, slightly dizzy and slightly weak in the legs. A coworker escorted her out of the bathroom and she sat down outside the bathroom. She was able to walk at that point. She then felt worse and was brought to the ED. An NIH stroke scale was 0 when she arrived here, but there was a story of some complaint of weakness of the right hand. No seizure activity was noted at any time and the patient did not lose awareness on this occasion. She underwent a LETICIA on 05/23/2017, which was normal with an ejection fraction of 55%, and MRA of the head and neck, which were normal, and an MRI scan of the brain, which demonstrated evidence of small vessel ischemic disease consistent with her history of hypertension. I reviewed this study with Dr. Gale in Radiology and he had been initially concerned about demyelinating disease, but there were no lesions in a periventricular distribution and the corpus callosum was not involved (which would have been typical of MS). There is no other history of syncope or cardiac palpitations and no history of seizures in the patient's family. REVIEW OF SYSTEMS: The patient denied any double vision, difficulty with language speech or swallowing other than that described above, or difficulty with gait, coordination or balance. She has had no chest pain, shortness of breath, cough, sputum production, abdominal pain, nausea, vomiting, black or red stools, constipation or diarrhea, fevers, sweats or chills. The remainder of 11-point review of systems is negative. SOCIAL HISTORY: Not rereviewed. FAMILY HISTORY: Not reviewed. PHYSICAL EXAMINATION: GENERAL: On examination, she appears a well-developed, well-nourished, somewhat overweight woman, lying in bed with mild headache and in no acute distress. VITAL SIGNS: Are as charted. NECK: Supple with no carotid bruits. CARDIAC: Reveals no murmurs, rubs or gallops. ABDOMEN: Soft. Bowel sounds are normal. EXTREMITIES: Reveal no evidence of trauma or bruising. NEUROLOGIC: She is alert and oriented x 3 and her speech is fluent and clear without letter or word substitution. She follows commands quickly and accurately. Her recall and history rendering is rich in detail as described. Her fund of knowledge is normal. Cranial nerves 2-12 are normal. Specifically, her visual brown are full to finger confrontation. Both pupils are 4 mm in diameter and react normally to light. Extraocular movements are full without nystagmus but this maneuver makes her feel \\"dizzy.\\" There is no facial motor or sensory deficit. She hears without difficulty. The uvula elevates in the tongue, protrudes in the midline. She has very poor dentition. Shoulder shrug is normal, strong and symmetric on both sides. Motor examination reveals normal strength in all 4 extremities proximally and distally and sensation is intact to light touch throughout except for the right upper extremity, where it is significantly diminished to light touch compared with the left side. There is no facial sensory deficit. No deficit in either leg. Cerebellar testing by [id number] examination is normal, although it is slightly more slowly performed with the right hand than the left. The patient is right handed. Tendon reflexes are 1+ at the biceps on both sides, 1+ in both knees, trace at both ankles and both great toes are downgoing to plantar stimulation. IMPRESSION: 1. Episode of lightheadedness and malaise and feeling faint while cleaning the bathroom stalls at [facility] after wiping down 2 stalls secondary to inhaling the toxic fumes of the bleach and stainless steel casting cleaner (a large surface at close range near her face), secondary to the toxic effect of these fumes. Her blood pressure may have been low at that time as well (see below). 2. Hypertension diagnosed 2 weeks ago and started on medications initially just a diuretic and then lisinopril was added 1 week ago. Her blood pressure was documented to be low at the [facility] clinic in the 90 systolic range. The patient telephoned her physician, but did not receive a call back. 3. Episode of syncope 3 days ago at 3:00 a.m. when she got up to go to the bathroom. She likely passed out because of postural hypotension and awoke on the floor an hour later having hit her head on the bathroom as she struck the floor. There is no antecedent history of syncope. 4. Mild post-concussive syndrome with headaches secondary to blunt head trauma from falling as above. 5. Episode in 01/2017 of speech difficulty with right upper extremity symptoms with persistent right arm deficit to sensation. The mechanism of this is not clear. She has been extensively evaluated at [facility] and has a followup appointment on 06/13/2017 with her neurologist. She is not thought to have a seizure disorder and was not instructed to take anticonvulsant medicines and ongoing weight. She was given a tapering dose of an anticonvulsant to last for 3 weeks and this has now been discontinued. RECOMMENDATION AND PLAN: 1. Obtain an EEG. 2. Chart postural signs. I would back off on her antihypertensive regimen at this time if you have not already done so. 3. Go from there. This consultation is appreciated. JOB# [id number] LISY/ALISSA LARRY
[2017-05-25 06:06] LABS: Anion Gap 18 mmol/L; Blood Urea Nitrogen 27 mg/dL (7-17); Calcium 8.5 mg/dL (8.4-10.2); Carbon Dioxide 24 mmol/L (22-30); Glucose 91 mg/dL (65-100); Potassium 4.1 mmol/L (3.6-5.0); Sodium 138 mmol/L (137-145)
[2017-05-25] MEDS: NACL 0.9% 1000 ML 1,000 ML IV SCH (06:27)
--- NOTE | 2017-05-25 09:19 | Progress Note ---
Assessment and Plan Impression * Acute kidney injury - ?secondary to prerenal azotemia --SCr 1.1mg/dL - May 08 * Hypertension - recent dx * Hx of syncopal episode Plan: * Will follow up on pending labs * Continue current management * Hold ACEi/diuretic at discharge * Neuro work up in progress * Dose medications for renal function * Avoid nephrotoxins * Will see prn Subjective Date of service: 05/25/17 Interval history: Patient without no complaint events Objective - Vital Signs Vital signs: Vital Signs - 12hr 05/24/17 05/24/17 05/25/17 22:00 23:34 02:00 Temperature 98.3 F Pulse Rate 80 84 Respiratory 18 20 Rate Blood Pressure 118/72 O2 Sat by Pulse 96 Oximetry 05/25/17 05/25/17 04:43 08:20 Temperature 97.5 F L 97.6 F Pulse Rate 87 80 Respiratory 20 18 Rate Blood Pressure 117/69 113/67 O2 Sat by Pulse 98 95 Oximetry - General Appearance General appearance: well-developed, well-nourished EENT: ATNC Respiratory: Present: Clear to Ascultation Cardiology: regular, S1S2 Gastrointestinal: normal, no tenderness, no distended Integumentary: no rash Neurologic: no focal deficit Musculoskeletal: other (no edema) Psychiatric: mood/affect appropriate, cooperative - Lab 05/23/17 17:25 05/25/17 04:41 Most recent lab results Calcium 8.5 mg/dL (8.4-10.2) 05/25/17 04:41 Urine Creatinine 125.5 mg/dL (0.1-20.0) H 05/24/17 19:50 Urine Sodium 89 mEq/L 05/24/17 19:50 Urine Total Protein 22 mg/dL (5-11.8) H 05/24/17 19:50
--- NOTE | 2017-05-25 10:11 | Ultrasound Report ---
ULTRASOUND RENAL BILATERAL HISTORY: Acute renal insufficiency. TECHNIQUE: transabdominal ultrasound with color Doppler interrogation. FINDINGS: The right kidney measures 10.0 x 4.7 x 4.5cm. Right renal cortex: 1.4cm. The left kidney measures 10.6 x 4.6 x 4.3cm. Left renal cortex: 1.2cm. Scans of the kidneys show normal renal contours. There is normal central calyceal clustering and good preservation of the cortical thickness. There is no evidence of mass or hydronephrosis. The views of the bladder and the region of the ureters appear normal. IMPRESSION: Unremarkable renal ultrasound.
[2017-05-25] MEDS: NORVASC PO SCH (10:41)
[2017-05-25] MEDS: COLACE PO SCH (10:42)
[2017-05-25] MEDS: LOVENOX SUB-Q SCH (10:42)
--- NOTE | 2017-05-25 13:42 | Discharge Summary ---
Providers - Providers Date of Admission: 05/23/17 19:38 Attending physician: NEENA TILLMAN MD 05/23/17 Consult to Physician [CONS] Routine Consulting Provider: KIM SOLORZANO Reason For Exam: cva Place consult to:: Dr. Solorzano Notified:: Mikki BENTLEY Phone number called:: Was contact made?: Yes If yes, spoke with:: Bernarda-answering service Time called:: 08:10 05/23/17 20:16 Occupational Therapy Evaluate and Treat [CONS] Routine Comment: Reason For Exam: Neuro deficits Physical Therapy Evaluation and Treat [CONS] Routine Comment: Reason For Exam: Neuro deficits 05/24/17 09:07 Consult to Physician [CONS] Routine Consulting Provider: PRISCILLA JOHNS Reason For Exam: SHARON Place consult to:: Dr. 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 She works at [employer]. She told her coworkers he had a diffuse and somewhat frontal headache. Later she told medics that she was having numbness in RUE. She has a previous hx of hemorrhagic stroke at [facility] earlier this year, and now has permanently slurred speech and mild expressive aphasia. States that she was started on lisinopril/ hct combination pill a week prior and it was causing her polyuria. She is brought into the hospital on stroke protocol. She went on to have CT of her brain did not show any acute stroke. Which was followed by MR of her brain did not show any acute stroke. But it was suspicious for possible demyelinating condition, patient states that she follows up with a neurologist as an outpatient she'll continue to follow-up with that neurologist as she is getting actively worked up and treated there. She did suffer from acute kidney injury and dehydration for which she received IV fluids, and she clinically improved, she also had migraine PURCELL for which she was received analgesics and improved. Syncope was due to dehydration therefore NADIYA inhibitor and diuretic were dc in favor of norvasc. Discharge Diagnosis CVA was ruled out SHARON Vasomotor nephropathy Dehydration Autonomic Imbalance Syncope and collapse HTN HLD Migraine Headache with acute exacerbation Disposition: DC-01 TO HOME OR SELFCARE Time spent for discharge: 33 minutes Core Measure Documentation - Palliative Care Palliative Care/ Comfort Measures: Not Applicable - Core Measures Any of the following diagnoses?: none Exam - Physical Exam Narrative exam: General.: Appears well, no distress, nontoxic HEENT: Moist mucous membranes, extraocular muscles intact, no lymphadenopathy Neck: supple Cardiac: S1-S2 heard Lungs: clear to auscultation bilaterally Abdomen: soft , nontender, nondistended, bowel sounds positive Extremities: no edema clubbing or cyanosis Skin: no rash or lesions Neurologic: no gross focal deficits, slightly slurred speech Psych: appropriate behavior, appropriate mood, corporative, judgment intact - Constitutional Vitals: Temp Pulse Resp BP Pulse Ox 97.6 F 72 18 117/67 96 05/25/17 08:20 05/25/17 12:24 05/25/17 08:20 05/25/17 10:41 05/25/17 08:32 Plan Follow up with: PRIMARY CARE, [Primary Care Provider] - 3-5 Days Forms: Work/School Release Form Prescriptions: amLODIPine [Norvasc] 5 mg PO DAILY #30 tablet Codeine/Butalbital/ASA/Caffein [Fiorinal with Codeine #3 Cap] 1 each PO Q6H PRN #15 capsule PRN Reason: Headache
[2017-05-25] MEDS ORDERED: FIORICET PO ONE (14:30)
[2017-05-25 14:45] VITALS: BP 133/73
[2017-05-29 16:49] LABS: Myeloperoxidase Antibody <1.0 AI (<1.0)
== END 2017-05-25 17:02 | disposition home or self-care (01) | DRG 683 ==
LOC: ED 16:57 → 4A 19:38
PROVIDERS: ADMIT Internal Medicine; ATTEND Internal Medicine
DX: N17.0 Acute kidney failure with tubular necrosis (principal); R47.01 Aphasia; R55 Syncope and collapse; G43.909 Migraine, unspecified, not intractable, without status migrainosus; E86.0 Dehydration; G90.8 Other disorders of autonomic nervous system; F07.81 Postconcussional syndrome; I10 Essential (primary) hypertension; E78.5 Hyperlipidemia, unspecified; Z86.73 Personal history of transient ischemic attack (TIA), and cerebral infarction without residual deficits; Z90.49 Acquired absence of other specified parts of digestive tract
CPT/HCPCS: 36415; 70450; 70544; 70551; 76770; 80048; 80061; 80307; 81001; 82550; 82553; 82570; 82962; 84156; 84300; 84484; 85025; 85610; 85670; 85730; 86021; 86038; 86160; 93005; 93010; 93306; 93880; J1650; J7030